=== PATIENT | female | born 1955 | race Two or more races ===

== ENCOUNTER 2019-05-15 11:11 | Emergency (ER) | payer OTHER ==
[~2019-05-15] VITALS: Ht 170.2 cm; Wt 113.4 kg
[~2019-05-15 11:11] MED LIST: DULERA 200 MCG/13 GM IH; PROVENTIL HFA6.7 GM IH; SINGULAIR10 MG PO; SYNTHROID50 MCG PO
== END 2019-05-15 13:30 | disposition home or self-care (01) ==
LOC: ER 11:11
DX: J06.9 Acute upper respiratory infection, unspecified (principal)

== ENCOUNTER 2021-07-06 13:32 | Emergency (ER) | payer OTHER ==
[~2021-07-06] VITALS: Ht 167.6 cm; Wt 115.7 kg
[2021-07-06] MEDS ORDERED: SYMBICORT 16010.2 GM (13:59)
[2021-07-06] MEDS ORDERED: EZETIMIBE10 MG (13:59)
[2021-07-06] MEDS ORDERED: OZEMPIC1 MG/0.75 (14:00)
== END 2021-07-06 16:23 | disposition home or self-care (01) ==
LOC: ER 13:32
DX: L03.011 Cellulitis of right finger (principal); E13.44 Other specified diabetes mellitus with diabetic amyotrophy

== ENCOUNTER 2023-01-16 13:58 | Emergency (ER) | payer OTHER ==
[~2023-01-16] VITALS: Ht 170.2 cm; Wt 114.3 kg
[~2023-01-16 13:58] MED LIST changes: +EZETIMIBE10 MG; +OZEMPIC1 MG/0.75; +SYMBICORT 16010.2 GM
[2023-01-16] MEDS ORDERED: VASOTEC2.5 MG PO (14:26)
[2023-01-16] MEDS ORDERED: PAXLOVID 300-11 EACH PO (17:59)
== END 2023-01-16 18:17 | disposition home or self-care (01) ==
LOC: ER 13:58
PROVIDERS: General Practice
DX: B34.8 Other viral infections of unspecified site (principal)